=== PATIENT | female | born 1980 | race Caucasian/White ===

== ENCOUNTER 2020-09-27 12:45 | Outpatient (CLI) | payer OTHER ==
[~2020-09-27 12:45] MED LIST: Iopamidol 300 61% 50 ML VIAL FS ONE
[2020-09-27 13:39] LABS: BHCG - Serum Negative (NEGATIVE); Pregs Control Background? CLEAR/WHITE (CLR/WHITE); Pregs Control Bar Appear? YES (CONTROL BAR)
--- NOTE | 2020-09-27 15:46 | RAD ---
EXAM: XR Hysterosalpingogram PROVIDED CLINICAL HISTORY: Dysmenorrhea. Difficulty conceiving. COMPARISON: None FINDINGS: A speculum was placed, and the cervix was exposed. The cervix was prepped in usual fashion. A sound d evice was placed into the endocervical canal. A 5 [place] catheter with distal balloon was advanced into the endocervical canal. Distal balloon was filled with air. Small amount of contrast was injecte d easily filling the endometrial canal with contrast seen in each fallopian tube. There is prompt spill of contrast into the pelvis bilaterally. The distal balloon was deflated, and the catheter was removed. Speculum was removed. Patient tolerated the procedure well and without complication. Fluoroscopy: Time-1.7 minutes Dose-97.7 microGy meter squared IMPRESSION: Normal appearance of the endometrial canal. Each fallopian tube is promptly identified upon injection of contrast and demonstrate a normal appearance. Free spill of contrast into the pelvis is seen.
== END 2020-09-27 12:46 | disposition home or self-care (01) ==
LOC: RAD 12:45
PROVIDERS: ATTEND Family Medicine
DX: N94.6 Dysmenorrhea, unspecified (principal); Z32.00 Encounter for pregnancy test, result unknown
CPT/HCPCS: 36415; 58340; 74740; 84703; Q9967